=== PATIENT | female | born 1980 | race Caucasian/White ===

== ENCOUNTER 2023-09-09 02:52 | Emergency (ER) | payer BC ==
[2023-09-09] MEDS ORDERED: PROP20TA7 PO (03:44)
[2023-09-09 04:13] VITALS: BP 134/78; TEMP 98; O2SAT 99
== END 2023-09-09 04:14 | disposition home or self-care (01) ==
LOC: ER 03:00
DX: I10 Essential (primary) hypertension (principal); R00.2 Palpitations; Z79.899 Other long term (current) drug therapy